=== PATIENT | male | born 1980 | race Caucasian/White ===

== ENCOUNTER 2016-07-25 07:07 | Emergency (ER) | payer MEDICARE ==
[~2016-07-25] VITALS: Ht 185.4 cm; Wt 74.5 kg
[~2016-07-25 07:07] MED LIST: ATOM40 PO; BENZ1TAB7 PO; LITH300T PO; PALI234D IM; PROP60CA8 PO; ZIPR40CA2 PO
[2016-07-25 07:15] VITALS: BP 144/84; PULSE 100; RESP 16; O2SAT 97
--- NOTE | 2016-07-25 07:37 | ED.REPORT ---
HPI-General Illness Date of Service Jul 25, 2016 ED Provider: Doc,Ed MD Nursing Notes Stated Complaint: HERE FOR MEDS Chief Complaint: Psychiatric Complaint Allergies: Coded Allergies: haloperidol (Unverified Allergy, Unknown, 07/21/16) Scheduled Atomoxetine (Strattera) 40 Mg Capsule 80 MG PO DAILY Benztropine Mesylate (Benztropine Mesylate) 1 Mg Tablet 2 MG PO DAILY Cosmos Carbonate (Cosmos Carbonate) 300 Mg Tablet.er 1,200 MG PO DAILY Paliperidone Palmitate Inj (Invega Sustenna) 234 Mg/1.5 Ml Syringe 3 ML IM monthly Propranolol ER (Inderal LA) 60 Mg Capsule 120 MG PO DAILY Ziprasidone (Geodon) 40 Mg Capsule 80 MG PO DAILY General Time Seen by MD: 07:36 Past Medical History Past Medical History Bipolar disorder, schizoaffective Past Surgical History Denies Smoking History Current Every Day Smoker Social History Drug Use: Meth Other Social History: Homeless Ambulatory Status Independent Physical Exam Vital Signs Vital Signs Date Time Temp Pulse Resp B/P Pulse Ox O2 Delivery O2 Flow Rate FiO2 07/25/16 07:15 36.1 100 16 144/84 97 Room Air Discharge & Departure Referrals: NOPCP (PCP) Camilla Brizuela MD Jul 25, 2016 07:37
== END 2016-07-25 09:00 | disposition left against medical advice (07) ==
LOC: SED 07:07
DX: Z53.21 Procedure and treatment not carried out due to patient leaving prior to being seen by health care provider (principal)

== ENCOUNTER 2016-08-06 18:24 | Emergency (ER) | payer MEDICARE ==
[~2016-08-06] VITALS: Ht 177.8 cm; Wt 80.0 kg
[2016-08-06 18:39] VITALS: BP 132/75; PULSE 85; RESP 20; O2SAT 97
--- NOTE | 2016-08-06 19:41 | ED.REPORT ---
HPI-Back Pain Under 40 Date of Service Aug 06, 2016 ED Provider: MD Tania This is a 36 year old male with a history of bipolar disorder presenting with upper back pain and neck pain that began 12 hours ago after sleeping on rocks. Pt also complaining of cold ears, chapped lips, and would like to speak to speak with someone about his medications. He would like to "sort out" his medications. Denies nausea, vomiting, abdominal pain, cough, or SOB. Denies any other injuries at this time. Nursing Notes Stated Complaint: BACK PAIN Chief Complaint: Back Pain or Injury Nursing Notes Reviewed: Yes Allergies: Coded Allergies: haloperidol (Unverified Allergy, Unknown, 07/21/16) Scheduled Atomoxetine (Strattera) 40 Mg Capsule 80 MG PO DAILY Benztropine Mesylate (Benztropine Mesylate) 1 Mg Tablet 2 MG PO DAILY [place] Carbonate ([place] Carbonate) 300 Mg Tablet.er 1,200 MG PO DAILY Paliperidone Palmitate Inj (Invega Sustenna) 234 Mg/1.5 Ml Syringe 3 ML IM monthly Propranolol ER (Inderal LA) 60 Mg Capsule 120 MG PO DAILY Ziprasidone (Geodon) 40 Mg Capsule 80 MG PO DAILY General Time Seen by MD: 19:41 Chief Complaint Back pain Hx Obtained From: Patient Arrived By: Walk-in Sudden in Onset?: Yes Onset Occurred: 9 - 12 hours ago Severity: Current: Moderate Pertinent Negative: Pt denies other symptoms Recent Healthcare: No recent doctor visit, No recent hospitalization Similar Sx Previous: No Past Medical History Past Medical History Bipolar disorder, schizoaffective Past Surgical History Denies Smoking History Current Every Day Smoker Social History Drug Use: Meth Other Social History: Homeless Ambulatory Status Independent Review of Systems Constitutional: Denies: Chills, Fever Respiratory: Denies: Shortness of breath Cardiovascular: Denies: Chest pain GI: Denies: Abdominal pain, Nausea, Vomiting Male: Denies Dysuria Musculoskeletal: Reports: Back pain, Neck pain Complete sys rev & neg: except as marked. Physical Exam Initial Vital Signs Vital Signs (First) Date Time Temp Pulse Resp B/P Pulse Ox O2 Delivery O2 Flow Rate FiO2 08/06/16 18:39 36.6 85 20 132/75 97 Room Air Initial VS: Reviewed Head / Eyes: Atraumatic, Normocephalic, PERRL ENT: Mucous membranes moist, Conjunctiva normal, No scleral icterus Neck: Supple, Non-tender, Full range of motion Respiratory: Breath sounds normal Cardiovascular: Heart sounds normal, Intact distal pulses Abdomen / GI: Soft, Non-tender, No guarding, No rebound, No distention Extremities: Vascular intact, Neuro intact, No swelling, No tenderness Skin: Warm, Dry, No cyanosis Psychiatric: Mood/affect normal, Behavior normal, Normal thought content General/Constitutional: Awake, Alert Back: Full range of motion Midline thoracic and cervical spine tenderness Neurologic: Oriented X3, Speech NL, No motor deficits, No sensory deficits, Reflexes equal bilat Interpretation & Diagnostics C-SPINE X-RAY IMPRESSION: No fracture. No acute osseous lesion. If there are persistent symptoms or continued clinical suspicion for pathology, then MRI should be considered for further evaluation. Dictated by: Maile Moncada MD, PhD on 08/06/2016 at 20:42 Approved by: Maile Moncada MD, PhD on 08/06/2016 at 20:43 THORACIC SPINE X-RAY IMPRESSION: No fracture. No acute osseous lesion. If there are persistent symptoms or continued clinical suspicion for pathology, then MRI should be considered for further evaluation. Dictated by: Maile Moncada MD, PhD on 08/06/2016 at 20:41 Approved by: Maile Moncada MD, PhD on 08/06/2016 at 20:42 Re-Eval/Medical Decision Med Decision/Clinical Course I reached out to the PACT team. They recommend that Jaron is seen tomorrow at 10 AM to have his medications refilled. I discussed this with him. He agrees to do that. He had no suicidal homicidal ideations. His x-rays were reassuring. Pain was well controlled with Toradol. Short course of Naprosyn prescribed for pain. We also gave some Chapstick for his chapped lips and we called a cab to take him home. Counseled Regarding: Diagnosis, Lab results, Need for follow-up, When/why to return to ED Discharge & Departure Impression: Primary Impression: Strain of thoracic region Encounter type: initial encounter Qualified Code: S29.019A - Strain of muscle and tendon of unspecified wall of thorax, initial encounter Additional Impression: Neck pain Disposition: Home All VS Reviewed: Yes Condition: Stable Patient Instructions: Acute Low Back Pain (DC), Cervical Spine Strain (DC) Additional Instructions: A fracture was not appreciated on the x-rays. Take Naprosyn twice daily as needed for pain. Follow up with [facility] tomorrow to discuss your medications and to have your medications refilled. Use chap stick for your chapped lips. Referrals: SANDRA ANTON MD (PCP) [facility] Scribe Attestation Portions of this note were transcribed by Yessi Coles. I, Dr. Marin personally performed the history, physical exam and medical decision-making; I reviewed and confirmed the accuracy of the information in the transcribed note. Signed by Cherry Lim, 08/06/2016 at 23:30. Boom Marin DO Aug 06, 2016 19:41 YESSI COLES Aug 06, 2016 19:43
[2016-08-06] MEDS ORDERED: Ketorolac 30 mg/mL 2 mL Inj IM ONE (20:00)
--- NOTE | 2016-08-06 20:43 | DRSVH ---
PROCEDURE: X-RAY THORACIC SPINE, 2 VIEWS INDICATIONS: fall, pain TECHNIQUE: 2 views of the thoracic spine were acquired. COMPARISON: None. FINDINGS: Bones: No fractures or dislocations. No suspicious bony lesions. 12 pairs of ribs are noted, and a ppear intact where visualized. Soft tissues: No paravertebral stripe thickening. IMPRESSION: No fracture. No acute osseous lesion. If there are persistent symptoms or continued clin ical suspicion for pathology, then MRI should be considered for further evaluation. Dictated by: Maile Moncada MD, PhD on 08/06/2016 at 20:41 Approved by: Maile Moncada MD, PhD on 08/06/2016 at 20:42
--- NOTE | 2016-08-06 20:44 | DRSVH ---
PROCEDURE: X-RAY CERVICAL SPINE, 4 VIEWS INDICATIONS: fall, pain TECHNIQUE: 4 view(s) of the cervical spine were acquired. COMPARISON: None. FINDINGS: Bones: No fractures or dislocations to the T4 level. The lateral masses of C1 appear intact on the odontoid view. No suspicious bony lesions. Soft tissues: No prevertebral soft tissue swelling. IMPRESSION: No fracture. No acute osseous lesion. If there are persistent symptoms or continued clin ical suspicion for pathology, then MRI should be considered for further evaluation. Dictated by: Maile Moncada MD, PhD on 08/06/2016 at 20:42 Approved by: Maile Moncada MD, PhD on 08/06/2016 at 20:43
[2016-08-06 22:14] VITALS: BP 120/72; PULSE 79; RESP 20; O2SAT 97
== END 2016-08-06 22:16 | disposition home or self-care (01) ==
LOC: SED 18:24
DX: S29.019A Strain of muscle and tendon of unspecified wall of thorax, initial encounter (principal); X58.XXXA Exposure to other specified factors, initial encounter; Y92.9 Unspecified place or not applicable; Y93.84 Activity, sleeping; Y99.8 Other external cause status; M54.2 Cervicalgia; F25.0 Schizoaffective disorder, bipolar type; F17.200 Nicotine dependence, unspecified, uncomplicated; L98.8 Other specified disorders of the skin and subcutaneous tissue; Z88.8 Allergy status to other drugs, medicaments and biological substances; Z59.0 Homelessness
CPT/HCPCS: 72050; 72070; 82075; 96372; 99284; J1885

== ENCOUNTER 2016-08-07 21:09 | Emergency (ER) | payer MEDICARE ==
[~2016-08-07] VITALS: Ht 170.2 cm; Wt 80.0 kg
[2016-08-07 21:15] VITALS: BP 137/73; PULSE 94; RESP 20; O2SAT 95
--- NOTE | 2016-08-07 21:29 | ED.REPORT ---
HPI-General Illness Date of Service Aug 07, 2016 ED Provider: Dr. Boom Marin D.O. A 36 year old homeless, schizoaffective male with a history of bipolar disorder and methamphetamine use presents to the ED for a psych evaluation and admission. He was seen in the ED yesterday for neck and back pain and was discharged with instructions to follow-up with [facility]. He complains that his PACT team didn't help him, despite visiting them multiple times today. The patient believes he will be admitted today but denies any specific complaints. He denies suicidal or homicidal ideation. On exam he is agitated and frustrated, yelling but then apologizing for getting upset. Nursing Notes Stated Complaint: PSYCHIATRIC COMPLAINT Chief Complaint: Psychiatric Complaint Nursing Notes Reviewed: Yes Allergies: Coded Allergies: haloperidol (Unverified Allergy, Unknown, 07/21/16) Scheduled Atomoxetine (Strattera) 40 Mg Capsule 80 MG PO DAILY Benztropine Mesylate (Benztropine Mesylate) 1 Mg Tablet 2 MG PO DAILY [place] Carbonate (Pontoosuc Carbonate) 300 Mg Tablet.er 1,200 MG PO DAILY Paliperidone Palmitate Inj (Invega Sustenna) 234 Mg/1.5 Ml Syringe 3 ML IM monthly Propranolol ER (Inderal LA) 60 Mg Capsule 120 MG PO DAILY Ziprasidone (Geodon) 40 Mg Capsule 80 MG PO DAILY General Time Seen by MD: 21:28 Chief Complaint Other (Psych Evaluation) Hx Obtained From: Patient Arrived By: Walk-in Onset Occurred: Onset unknown Symptom Duration: Since onset Severity: Current: No pain currently Severity: Maximum: No pain Associated with: Denies: Fever Pertinent Negative: Relieved by nothing Context Related History: Reports Psychiatric history Recent Healthcare: Recent doctor visit Similar Sx Previous: Yes Past Medical History Past Medical History Bipolar disorder schizoaffective Past Surgical History Denies Smoking History Current Every Day Smoker Social History Drug Use: Meth Other Social History: Homeless Ambulatory Status Independent Review of Systems Full Review of Systems Constitutional: Denies: Fever Respiratory: Denies: Non-productive cough, Shortness of breath GI: Denies: Vomiting Psychiatric: Reports: Agitation, Denies: Homicidal ideation, Suicidal ideation Complete sys rev & neg: except as marked. Physical Exam Vital Signs Vital Signs Date Time Temp Pulse Resp B/P Pulse Ox O2 Delivery O2 Flow Rate FiO2 08/07/16 22:34 36.8 99 18 124/63 93 Room Air 08/07/16 21:15 36.6 94 20 137/73 95 Room Air Initial VS: Reviewed Head / Eyes: Atraumatic, Normocephalic ENT: Conjunctiva normal, No scleral icterus Neck: Supple, Full range of motion Respiratory: Breath sounds normal, Clear to auscultation, No respiratory distress Cardiovascular: Regular rate & rhythm, Heart sounds normal Skin: Warm, Dry, No cyanosis Neurologic: Alert, Oriented General/Constitutional: Awake, Alert Behavior: Positive: Agitated Patient yelled in frustration, then apologized Psychiatric: Not suicidal, Not homicidal Interpretation & Diagnostics Lab Results Interpretation Result Diagram: 08/07/16214408/07/162144 Test 08/07/16 21:45 White Blood Count 3.3th/mm3 (3.8-10.1) Red Blood Count 4.36mil/mm3 (4.40-5.80) Hemoglobin 13.6g/dL (13.8-17.2) Hematocrit 40.5% (41.0-50.0) Mean Corpuscular Volume 92.9fL (81-100) Mean Corpuscular Hemoglobin 31.2pg (27.0-35.0) Mean Corpuscular Hemoglobin Concent 33.6% (32.0-37.0) Red Cell Distribution Width 12.9% (12.3-15.4) Platelet Count 166bil/L (150-400) Neutrophils (%) (Auto) 51.8% (40-74) Lymphocytes (%) (Auto) 27.5% (14-46) Monocytes (%) (Auto) 18.3% (4-12) Eosinophils (%) (Auto) 1.5% (0-5) Basophils (%) (Auto) 0.6% (0-3) Sodium Level 141mEq/L (134-144) Potassium Level 3.8mEq/L (3.5-5.2) Chloride Level 103mEq/L (97-108) Carbon Dioxide Level 24mmol/L (18-29) Blood Urea Nitrogen 10mg/dL (6-20) Creatinine 0.56mg/dL (0.76-1.27) Estimat Glomerular Filtration Rate 178mL/min (>59) Glucose Level 126mg/dL (60-99) Calcium Level 8.2mg/dL (8.5-10.1) Total Bilirubin 0.2mg/dL (0.0-1.2) Aspartate Amino Transf (AST/SGOT) 29U/L (0-50) Alanine Aminotransferase (ALT/SGPT) 26U/L (0-44) Alkaline Phosphatase 95U/L (25-150) Total Protein 6.2g/dL (6.4-8.4) Albumin 3.7g/dL (3.4-5.0) Thyroid Stimulating Hormone (TSH) 0.274uIU/mL (0.450-4.500) Hold Dai Top Tube Received (Received) Re-Eval/Medical Decision Med Decision/Clinical Course No active suicidal or homicidal ideations. PACT team evaluation completed. No indications for admission. They will follow up tomorrow. Recommendations discharge. Source of Hx: Old records Time of Eval: 10:20 Patient Status: Condition improved Re-Evaluation/Progress Note: Discussed with patient lab results, diagnosis, and plan for discharge. Follow-up and return to the ER instructions given. Patient agrees with plan for care and all questions were addressed. Consultation : Call Returned at: 22:32 Is Technician: Agrees with eval, Agrees with plan Note: Spoke with patient's PACT team. They recommend discharge with continued outpatient treatment. Counseled Regarding: Diagnosis, Lab results, Need for follow-up, When/why to return to ED Discharge & Departure Shift Change Sign-Out Response to Therapy: Improved Primary Impression: Acute situational disturbance Disposition: Home Discharge Condition All VS Reviewed: Yes Patient Instructions: Bipolar Disorder (ED) Additional Instructions: Your PACT team recommends continued outpatient treatment. Hospitalization was not recommended. You are discharged from our emergency department. Follow-up with your PACT team/[facility] appointment. If they prescribed the medications then I strongly recommend that you take them. Do not abuse any alcohol or any drugs, this will make mental illness worse. Referrals: SANDRA ANTON MD (PCP) [facility] Scribe Attestation Portions of this note were transcribed by Leah Mccurdy. I, Dr. Marin, personally performed the history, physical exam, and medical decision-making; I reviewed and confirmed the accuracy of the information in the transcribed note. Signed by: Cherry Malik, 08/07/2016, 22:35 copies to: SANDRA ANTON MD ; [facility]om Tushar JIMENEZ Aug 07, 2016 21:29 LEAH MCCURDY Aug 07, 2016 22:36
[2016-08-07 21:58] LABS: BASOPHILS % (AUTO) 0.6 % (0-3); EOSINOPHILS % (AUTO) 1.5 % (0-5); MONOCYTES % (AUTO) 18.3 % (4-12); Mean Corpuscular Hemoglobin 31.2 pg (27.0-35.0); Mean Corpuscular Volume 92.9 fL (81-100); NEUTROPHILS % (AUTO) 51.8 % (40-74); Platelet Count 166 bil/L (150-400)
[2016-08-07 22:34] VITALS: BP 124/63; PULSE 99; RESP 18; O2SAT 93
== END 2016-08-07 22:36 | disposition home or self-care (01) ==
LOC: SED 21:09 → EDBD 21:09 → SED 22:36
DX: F43.0 Acute stress reaction (principal); F25.0 Schizoaffective disorder, bipolar type; F15.10 Other stimulant abuse, uncomplicated; F17.200 Nicotine dependence, unspecified, uncomplicated; Z59.0 Homelessness; Z88.8 Allergy status to other drugs, medicaments and biological substances

== ENCOUNTER 2017-01-10 15:55 | Emergency (ER) | payer MEDICARE ==
[~2017-01-10] VITALS: Ht 177.8 cm; Wt 75.0 kg
[2017-01-10 16:03] VITALS: BP 123/79; PULSE 107; RESP 14; O2SAT 93
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
[2017-01-10] MEDS ORDERED: Lidocaine Topical 2% 30 mL Jelly TOPICAL PRN (18:00)
[2017-01-10] MEDS ORDERED: Lidocaine Topical 2% 30 mL Jelly TOPICAL SCH (18:15)
== END 2017-01-10 18:04 | disposition home or self-care (01) ==
LOC: SED 15:55
DX: L55.9 Sunburn, unspecified (principal); F17.200 Nicotine dependence, unspecified, uncomplicated; Z79.899 Other long term (current) drug therapy; Z88.8 Allergy status to other drugs, medicaments and biological substances